=== PATIENT | female | born 1950 | race Caucasian/White ===

== ENCOUNTER 2018-12-21 15:28 | Inpatient (IN) | payer OTHER ==
[~2018-12-21] VITALS: Ht 170.2 cm; Wt 97.1 kg
[2018-12-21 15:28] VITALS: BP_SYST 119
[2018-12-21 16:30] LABS: INR 1.1 (0.8-1.2); PROTHROMBIN TIME 11.6 SECS (9.5-12.5)
[2018-12-21 16:32] LABS: CALCIUM 8.2 mg/dL (8.4-11.0); CREATININE 0.68 mg/dL (0.55-1.30); POTASSIUM 3.7 mmol/L (3.5-5.1)
[2018-12-21 16:38] LABS: ALBUMIN 3.3 g/dL (3.4-4.8); TOTAL BILIRUBIN 0.6 mg/dL (0.0-1.0)
[2018-12-21 17:27] LABS: WHITE BLOOD COUNT (AUTO) 2.8 K/uL (4.8-10.8)
[2018-12-21 17:28] LABS: HEMATOCRIT 26.8 % (36-48); HEMOGLOBIN 8.5 g/dL (12.0-16.0); MEAN CORPUSCULAR HEMOGLOBIN 24 pg (27-31); MEAN CORPUSCULAR HGB CONC 32 % (32-36); MEAN CORPUSCULAR VOLUME 76 fL (79.0-98.0); PLATELET COUNT (AUTO) 78 K/uL (130-430); RED BLOOD CELL COUNT(AUTO) 3.51 MIL/uL (4.2-6.2)
[2018-12-21 18:22] LABS: BAND % (MANUAL) 4 % (0-6); BASOPHILS % (MANUAL) 0 % (0-2); EOSINOPHILS % (MANUAL) 5 % (0-7); LYMPHOCYTES % (MANUAL) 22 % (20-46); MONOCYTES % (MANUAL) 9 % (0-11)
[2018-12-21] MEDS ORDERED: IOHEXOL 350 mgI/mL, 150 ML INFUS..BTL IV ONE (19:38)
[2018-12-21 19:53] LABS: BILIRUBIN,URINE NEGATIVE (NEGATIVE); BLOOD, URINE NEGATIVE (NEGATIVE); CLARITY/URINE CLEAR (CLEAR); COLOR,URINE YELLOW (YELLOW); GLUCOSE,URINE NEGATIVE (NEGATIVE); KETONES,URINE NEGATIVE (NEGATIVE); LEUKOCYTE ESTERASE ,URINE 2+ (NEGATIVE); NITRITE, URINE NEGATIVE (NEGATIVE); PROTEIN URINE NEGATIVE (NEGATIVE)
[2018-12-21 20:07] LABS: BACTERIA,URINE FEW /HPF (None Seen); RBC,URINE NONE SEEN /HPF (0-3); URIC ACID CRYSTALS,URINE 0-10 /HPF (None Seen)
[2018-12-21 20:08] LABS: MUCUS,URINE None Seen /LPF (None Seen)
[2018-12-21] MEDS ORDERED: FURO-149 PO (23:30)
[2018-12-21 23:53] VITALS: BP_SYST 110
[2018-12-22 08:31] VITALS: BP_SYST 113
[2018-12-22] MEDS: SPIRONOLACTONE 50 MG TABLET (ALDACTONE) PO SCH (08:37)
[2018-12-22] MEDS: FUROSEMIDE 20 MG/2 ML VIAL IVP SCH ×2 (08:37→21:33)
[2018-12-22 11:37] VITALS: BP_SYST 115
[2018-12-22 15:33] VITALS: BP_SYST 119
[2018-12-22 21:28] VITALS: BP_SYST 107
[2018-12-23 00:23] VITALS: BP_SYST 115
[2018-12-23] MEDS ORDERED: fentaNYL CITRATE/PF 100 MCG/2 ML AMP ONE (07:18)
[2018-12-23] MEDS ORDERED: SIMETHICONE 40 MG/0.6 ML ML ONE (07:18)
[2018-12-23] MEDS ORDERED: MIDAZOLAM HCL 5 MG/5 ML VIAL ONE (07:18)
[2018-12-23 07:48] LABS: CALCIUM 8.4 mg/dL (8.4-11.0); CREATININE 0.54 mg/dL (0.55-1.30); POTASSIUM 3.4 mmol/L (3.5-5.1)
[2018-12-23 07:59] LABS: INR 1.1 (0.8-1.2); PROTHROMBIN TIME 11.3 SECS (9.5-12.5)
[2018-12-23 08:00] LABS: TOTAL IRON BIND. CAPACITY 393 ug/dL (250-450)
[2018-12-23 08:40] VITALS: BP_SYST 106
[2018-12-23 09:19] LABS: HEMOGLOBIN 8.2 g/dL (12.0-16.0); MEAN CORPUSCULAR HEMOGLOBIN 24 pg (27-31); MEAN CORPUSCULAR HGB CONC 32 % (32-36); MEAN CORPUSCULAR VOLUME 76 fL (79.0-98.0); RED BLOOD CELL COUNT(AUTO) 3.44 MIL/uL (4.2-6.2); RED CELL DISTRIBUTION WIDTH 18.6 % (9.0-15.0); WHITE BLOOD COUNT (AUTO) 4.4 K/uL (4.8-10.8)
[2018-12-23 09:20] LABS: BASOPHILS % (AUTO) 0.3 % (0.0-2.0); EOSINOPHILS # (AUTO) 0.1 K/uL (0.0-0.4); EOSINOPHILS % (AUTO) 2.8 % (0.0-4.0); LYMPHOCYTES # (AUTO) 0.5 K/uL (1.0-5.5); LYMPHOCYTES % (AUTO) 12.5 % (20.5-51.5); MONOCYTES # (AUTO) 0.4 K/uL (0.0-1.0); MONOCYTES % (AUTO) 9.3 % (1.7-9.3); NEUTROPHILS # (AUTO) 3.3 K/uL (1.8-7.7); NEUTROPHILS % (AUTO) 75.1 % (40.0-70.0); PLATELET COUNT (AUTO) 53 K/uL (130-430)
[2018-12-23 09:38] LABS: TOTAL IRON BIND. CAPACITY 403 ug/dL (250-450)
[2018-12-23] MEDS: FUROSEMIDE 20 MG/2 ML VIAL IVP SCH ×2 (10:05→22:14)
[2018-12-23] MEDS: SPIRONOLACTONE 50 MG TABLET (ALDACTONE) PO SCH (10:05)
[2018-12-23 12:02] VITALS: BP_SYST 112
[2018-12-23] MEDS ORDERED: POTASSIUM CHLORIDE 20 MEQ TAB.PRT.SR PO ONE (14:15)
[2018-12-23 16:16] VITALS: BP_SYST 121
[2018-12-23] MEDS ORDERED: SOD FERRIC GLUC COMPLEX/SUC 125 MG in NS 100 ML IV SCH (18:45)
[2018-12-23 22:11] VITALS: BP_SYST 128
[2018-12-24] VITALS (7 sets, daily range): BP systolic 95–124
[2018-12-24 07:40] LABS: CALCIUM 8.3 mg/dL (8.4-11.0); CREATININE 0.55 mg/dL (0.55-1.30); FREE T4 (FREE THYROXINE) 1.2 ng/dL (0.6-1.6); POTASSIUM 3.5 mmol/L (3.5-5.1); THYROID STIMULATING HORMONE 6.07 uIu/mL (0.34-4.82); TOTAL BILIRUBIN 0.7 mg/dL (0.0-1.0)
[2018-12-24] MEDS: SPIRONOLACTONE 50 MG TABLET (ALDACTONE) PO SCH (08:36)
[2018-12-24] MEDS: FUROSEMIDE 20 MG/2 ML VIAL IVP SCH ×2 (08:37→21:00)
[2018-12-24] MEDS: SOD FERRIC GLUC COMPLEX/SUC 125 MG in NS 100 ML IV SCH (08:47)
[2018-12-24 09:20] LABS: HEMATOCRIT 25.3 % (36-48); HEMOGLOBIN 8.1 g/dL (12.0-16.0); MEAN CORPUSCULAR HEMOGLOBIN 24 pg (27-31); MEAN CORPUSCULAR HGB CONC 32 % (32-36); MEAN CORPUSCULAR VOLUME 75 fL (79.0-98.0); NEUTROPHILS % (AUTO) 60.4 % (40.0-70.0); RED BLOOD CELL COUNT(AUTO) 3.37 MIL/uL (4.2-6.2); RED CELL DISTRIBUTION WIDTH 18.9 % (9.0-15.0); WHITE BLOOD COUNT (AUTO) 3.9 K/uL (4.8-10.8)
[2018-12-24 09:21] LABS: BASOPHILS % (AUTO) 0.4 % (0.0-2.0); EOSINOPHILS # (AUTO) 0.2 K/uL (0.0-0.4); EOSINOPHILS % (AUTO) 4.2 % (0.0-4.0); LYMPHOCYTES # (AUTO) 0.9 K/uL (1.0-5.5); LYMPHOCYTES % (AUTO) 24.5 % (20.5-51.5); MONOCYTES # (AUTO) 0.4 K/uL (0.0-1.0); MONOCYTES % (AUTO) 10.5 % (1.7-9.3); NEUTROPHILS # (AUTO) 2.3 K/uL (1.8-7.7)
[2018-12-24 09:25] LABS: PLATELET COUNT (AUTO) 91 K/uL (130-430)
[2018-12-25 08:00] VITALS: BP_SYST 112
[2018-12-25] MEDS: FUROSEMIDE 20 MG/2 ML VIAL IVP SCH (09:14)
[2018-12-25] MEDS: SOD FERRIC GLUC COMPLEX/SUC 125 MG in NS 100 ML IV SCH (09:14)
[2018-12-25] MEDS: SPIRONOLACTONE 50 MG TABLET (ALDACTONE) PO SCH (09:15)
[2018-12-25 09:35] LABS: HEMATOCRIT 27.2 % (36-48); HEMOGLOBIN 8.4 g/dL (12.0-16.0); MEAN CORPUSCULAR HEMOGLOBIN 23 pg (27-31); MEAN CORPUSCULAR HGB CONC 31 % (32-36); MEAN CORPUSCULAR VOLUME 76 fL (79.0-98.0); PLATELET COUNT (AUTO) 96 K/uL (130-430); RED BLOOD CELL COUNT(AUTO) 3.61 MIL/uL (4.2-6.2); RED CELL DISTRIBUTION WIDTH 18.8 % (9.0-15.0); WHITE BLOOD COUNT (AUTO) 2.3 K/uL (4.8-10.8)
[2018-12-25 09:36] LABS: BASOPHILS % (AUTO) 0.6 % (0.0-2.0); EOSINOPHILS # (AUTO) 0.1 K/uL (0.0-0.4); EOSINOPHILS % (AUTO) 4.1 % (0.0-4.0); LYMPHOCYTES # (AUTO) 0.4 K/uL (1.0-5.5); LYMPHOCYTES % (AUTO) 19.2 % (20.5-51.5); MONOCYTES # (AUTO) 0.2 K/uL (0.0-1.0); MONOCYTES % (AUTO) 9.6 % (1.7-9.3); NEUTROPHILS # (AUTO) 1.5 K/uL (1.8-7.7)
[2018-12-25 11:53] VITALS: BP_SYST 103
[2018-12-25 12:14] LABS: NEUTROPHILS % (AUTO) 66.5 % (40.0-70.0)
[2018-12-25 13:08] LABS: HEPATITIS A AB, IgM Negative (Negative); HEPATITIS B CORE AB, IgM Negative (Negative); HEPATITIS B SURFACE AG Negative (Negative)
[2018-12-25 13:30] VITALS: BP_SYST 103
[2018-12-25 15:15] VITALS: BP_SYST 133
[2018-12-25] MEDS ORDERED: SPIR50TA5 PO (15:21)
[2018-12-25] MEDS ORDERED: PREN-18 PO (15:23)
[2018-12-25] MEDS ORDERED: FAMO40TA71 PO (15:24)
[2018-12-25] MEDS ORDERED: LEVO137T20 PO (15:27)
[2018-12-25 16:00] VITALS: BP_SYST 133
[2018-12-26 03:06] LABS: CERULOPLASMIN 33.1 mg/dL (19.0-39.0)
[2018-12-26 04:06] LABS: AFP, TUMOR MARKER 2.3 ng/mL (0.0-8.3)
[2018-12-26 06:07] LABS: FOLATE (FOLIC ACID) 9.6 ng/mL (>3.0)
[2018-12-26 08:22] LABS: LIVER-KIDNEY MICROSOMAL AB 2.6 Units (0.0-20.0)
[2018-12-26 09:19] LABS: ANTI-SMOOTH MUSCLE AB 13 Units (0-19)
[2018-12-27 15:14] LABS: ANTI NUCLEAR AB WITH REFLEX Negative (Negative)
== END 2018-12-25 16:40 | disposition home or self-care (01) | DRG 433 ==
LOC: SED 15:28 → SMU 23:14
PROVIDERS: ADMIT Family Medicine; ATTEND Family Medicine
PROC: 06L38CZ Occlusion of Esophageal Vein with Extraluminal Device, Via Natural or Artificial Opening Endoscopic (ICD-10-PCS; principal; 2018-12-23 07:30)
DX: K74.60 Unspecified cirrhosis of liver (principal); D61.818 Other pancytopenia; I85.00 Esophageal varices without bleeding; E44.1 Mild protein-calorie malnutrition; R18.8 Other ascites; K31.89 Other diseases of stomach and duodenum; E03.9 Hypothyroidism, unspecified; R13.10 Dysphagia, unspecified; E66.9 Obesity, unspecified; Z88.0 Allergy status to penicillin; Z68.33 Body mass index [BMI] 33.0-33.9, adult
CPT/HCPCS: 36415; 43244; 71045; 71275; 76700-TC; 80048; 80053; 80074; 81000-TC; 82103; 82105; 82272; 82390; 82607; 82728; 82746; 83516; 83540-TC; 83550-TC; 83880; 84439; 84443-TC; 84484; 85007; 85025; 85027; 85379; 85610-TC; 85730-TC; 86038; 86376; 87086; 93005; 99285; J1940; J2250; J2916; J3010; J7030; Q9967

== ENCOUNTER 2019-04-18 16:06 | Inpatient (IN) | payer OTHER ==
[~2019-04-18] VITALS: Ht 170.2 cm; Wt 91.2 kg
[~2019-04-18 16:06] MED LIST: FAMO40TA71 PO; FURO-149 PO; LEVO137T20 PO; PREN-18 PO; SPIR50TA5 PO
--- NOTE | 2019-04-18 17:44 | NUR ---
Opening Note received bedside SBAR report from admitting RN, patient resting in bed, no acute distress noted, admitting RN inserted IV catheter to left forearm, 20G, flushes easily with blood return, patient tolerated well, educated patient on use of call light and asked to call for assistance, patient verbalized understanding, call light in reach, educated patient on use of bed alarm for patient safety, patient refusing bed alarm, bed in low and locked position, patient sister at bedside.
[2019-04-18 17:48] VITALS: BP_SYST 105
--- NOTE | 2019-04-18 17:48 | NUR ---
Spoke with physician spoke with Dr. Domingo, new orders received, verified with telephone read back.
--- NOTE | 2019-04-18 19:15 | NUR ---
Closing Note bedside SBAR report given to receiving RN, patient resting in bed, patient denies any pain, no acute distress noted, educated patient on use of call light and asked to call for assistance, patient verbalized understanding, call light in reach, educated patient on use of bed alarm for patient safety, patient refusing bed alarm, bed in low and locked position, care endorsed to manager shift RN.
--- NOTE | 2019-04-18 19:15 | NUR ---
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
--- NOTE | 2019-04-18 19:30 | NUR ---
Initial Note Received patient awake, alert and oriented on her laptop. Denies any SOB, pain, bleeding or n/v at this time. VS taken and is stable. Saline lock. Skin intact and no peripheral edema noted. Ambulates inside the room with steady gait. Made her aware of the plan tonight that she's getting 1 unit of platelets. Awaiting availability. Care and monitoring will be provided per protocol. Call light within reach. Bed alarm off per patient's request. Bed at lowest position at all times. Needs attended. Repositions self. Kept warm and comfortable.
[2019-04-18 20:00] VITALS: BP_SYST 92
--- NOTE | 2019-04-18 21:15 | NUR ---
RN Note Patient sitting on a bedside chair with her laptop. No meds tonight. No complaints. Blood not ready yet. Needs attended.
--- NOTE | 2019-04-18 22:30 | NUR ---
-up Blood Bank Called blood bank for blood status. Lab will call me if blood is ready.
--- NOTE | 2019-04-18 23:10 | NUR ---
1 unit of Platelets VS stable. Verified order, patient's name and blood info with another RN. Started platelets. Stayed with the patient. VS stable after 15 mins of infusion. No adverse reaction noted. Increased rate of blood. Will continue to monitor.
[2019-04-19 01:45] VITALS: BP_SYST 109
--- NOTE | 2019-04-19 01:45 | NUR ---
Blood finished 1 unit of Platelets given without any adverse reaction. VS stable. No complaints at this time. Kept warm and comfortable. Addendum: 04/19/19 at 0613 by Cy Jin RN Made patient aware that she will be NPO after midnight for Abdominal US.
--- NOTE | 2019-04-19 03:00 | NUR ---
RN Note Patient sleeping at this time. No SOB or grimacing noted.
[2019-04-19 05:42] LABS: BASOPHILS % (AUTO) 0.3 % (0.0-2.0); EOSINOPHILS # (AUTO) 0.1 K/uL (0.0-0.4); HEMATOCRIT 30.1 % (36-48); HEMOGLOBIN 10.1 g/dL (12.0-16.0); LYMPHOCYTES # (AUTO) 0.5 K/uL (1.0-5.5); LYMPHOCYTES % (AUTO) 22.6 % (20.5-51.5); MEAN CORPUSCULAR HEMOGLOBIN 30 pg (27-31); MEAN CORPUSCULAR HGB CONC 33 % (32-36); MEAN CORPUSCULAR VOLUME 91 fL (79.0-98.0); MONOCYTES # (AUTO) 0.3 K/uL (0.0-1.0); MONOCYTES % (AUTO) 12.1 % (1.7-9.3); NEUTROPHILS # (AUTO) 1.5 K/uL (1.8-7.7); RED BLOOD CELL COUNT(AUTO) 3.33 MIL/uL (4.2-6.2); RED CELL DISTRIBUTION WIDTH 14.5 % (9.0-15.0); WHITE BLOOD COUNT (AUTO) 2.4 K/uL (4.8-10.8)
[2019-04-19 05:58] LABS: CALCIUM 9.3 mg/dL (8.4-11.0); CREATININE 0.73 mg/dL (0.55-1.30); POTASSIUM 4.1 mmol/L (3.5-5.1)
--- NOTE | 2019-04-19 06:15 | NUR ---
End Note Afebrile. VS stable. No complain of pain, SOB or n/v throughout the night. Ambulates well with steady gait. Transfused 1 unit of platelets and there's no labs today, will endorse to AM RN. NPO after MN for US Abdomen today. Care and monitoring provided per protocol. Call light within reach. Bed alarm off per patient's request. Bed at lowest position at all times. Needs attended. Kept warm and comfortable. Bleeding precaution observed.
[2019-04-19] MEDS ORDERED: LEVOTHYROXINE SODIUM 0.05 MG TABLET PO SCH (07:00)
--- NOTE | 2019-04-19 07:33 | NUR ---
Opening Note received bedside SBAR report from concrete precast moulder RN, patient resting in bed, no acute distress noted, patient denies any pain, educated patient on use of call light and asked to call for assistance, patient verbalized understanding, call light in reach, educated patient on use of bed alarm for patient safety, refusing bed alarm, bed in low and locked position.
[2019-04-19 08:00] VITALS: BP_SYST 111
[2019-04-19 08:25] LABS: PLATELET COUNT (AUTO) 63 K/uL (130-430)
[2019-04-19] MEDS ORDERED: FUROSEMIDE 40 MG TABLET PO SCH (09:00)
[2019-04-19] MEDS ORDERED: PRENATAL VITS W-CA,FE,FA(<1MG) (PRENATAL) TABLET PO SCH (09:00)
[2019-04-19] MEDS ORDERED: SPIRONOLACTONE 50 MG TABLET (ALDACTONE) PO SCH (09:00)
--- NOTE | 2019-04-19 09:59 | NUR ---
Physician Rounds Dr. Teixeira at bedside examining patient.
[2019-04-19 11:32] LABS: BILIRUBIN,URINE NEGATIVE (NEGATIVE); BLOOD, URINE 1+ (NEGATIVE); CLARITY/URINE CLOUDY (CLEAR); COLOR,URINE YELLOW (YELLOW); GLUCOSE,URINE NEGATIVE (NEGATIVE); KETONES,URINE NEGATIVE (NEGATIVE); LEUKOCYTE ESTERASE ,URINE 3+ (NEGATIVE); NITRITE, URINE NEGATIVE (NEGATIVE); PH,URINE 7.5 (5.0-8.0); PROTEIN URINE NEGATIVE (NEGATIVE); UROBILINOGEN,URINE 0.2 (0.2-1.0)
[2019-04-19 11:37] LABS: BACTERIA,URINE MODERATE /HPF (None Seen); WBC,URINE >100 /HPF (0-3)
--- NOTE | 2019-04-19 11:42 | NUR ---
RN Rounds patient sitting in bedside chair, no acute distress noted, call light in reach, no additional needs at this time.
[2019-04-19 12:00] VITALS: BP_SYST 108
--- NOTE | 2019-04-19 14:16 | NUR ---
RN Rounds patient sitting in bedside chair, patient denies any pain, no acute distress noted, respirations even and unlabored on room air, no additional needs at this time.
--- NOTE | 2019-04-19 14:47 | NUR ---
Physician Rounds Dr. Domingo at bedside examining patient.
[2019-04-19] MEDS ORDERED: NITR-85 PO (15:53)
[2019-04-19 15:57] VITALS: BP_SYST 109
[2019-04-19 16:03] VITALS: BP_SYST 109
--- NOTE | 2019-04-19 16:34 | NUR ---
Discharge patient provided with discharge packet and instructions, instructed patient to follow up with Dr. Domingo, patient verbalized understanding, written prescription for macrobid provided, IV catheter removed, catheter intact, no bleeding, no acute distress noted, steady gait noted, all belongings sent with patient, patient accompanied by her sister for discharge, patient taken to parking lot via wheelchair.
--- NOTE | 2019-04-24 16:00 | NUR ---
Discharge Follow Up Phone Call [employer] OPERATOR phoned patient, . Patient stated she was doing fine. She filled her prescription and is taking her medications as directed. She has a follow up appointment scheduled with Dr Domingo. No questions or concerns.
== END 2019-04-19 16:33 | disposition home or self-care (01) | DRG 809 ==
LOC: SMU 17:17
PROVIDERS: ADMIT Family Medicine; ATTEND Family Medicine
PROC: 30233R1 Transfusion of Nonautologous Platelets into Peripheral Vein, Percutaneous Approach (ICD-10-PCS; principal; 2019-04-18)
DX: D61.818 Other pancytopenia (principal); N39.0 Urinary tract infection, site not specified; D73.1 Hypersplenism; K74.60 Unspecified cirrhosis of liver; K80.20 Calculus of gallbladder without cholecystitis without obstruction
CPT/HCPCS: 36415; 76700-TC; 80048; 81000-TC; 82105; 82272; 85025; 86886; 86900; 86901; J7050; P9034